=== PATIENT | male | born 1995 | race Caucasian/White ===

== ENCOUNTER 2017-08-04 20:29 | Emergency (ER) | payer SELFPAY ==
[2014-06-26 18:41] VITALS: BMI 18.3
[~2017-08-04 20:29] MED LIST: HYDROCODONE-APA1 TAB PO
== END 2017-08-04 22:32 | disposition home or self-care (01) ==
LOC: D.ER 20:29
DX: S62.002A Unspecified fracture of navicular [scaphoid] bone of left wrist, initial encounter for closed fracture (principal); V89.9XXA Person injured in unspecified vehicle accident, initial encounter; Y93.89 Activity, other specified; Y92.89 Other specified places as the place of occurrence of the external cause; F17.200 Nicotine dependence, unspecified, uncomplicated